=== PATIENT | male | born 1980 | race American Indian/Alaskan Native ===

== ENCOUNTER 2019-07-29 11:15 | Emergency (ER) | payer BC ==
[2019-07-29 11:23] VITALS: BP 158/105
--- NOTE | 2019-07-29 11:29 | Emergency Department Report ---
Blank Doc - Documentation Documentation: 39-year-old male that presents with URI symptoms. This initial assessment/diagnostic orders/clinical plan/treatment(s) is/are subject to change based on patient's health status, clinical progression and re- assessment by fellow clinical providers in the ED. Further treatment and workup at subsequent clinical providers discretion. Patient/guardians urged not to elope from the ED as their condition may be serious if not clinically assessed and managed. Initial orders include: 1- Patient sent to [facility] for further evaluation and treatment 2- cxr
--- NOTE | 2019-07-29 12:14 | XRay Report ---
CHEST 2 VIEWS INDICATION / CLINICAL INFORMATION: Cough. COMPARISON: None currently available. FINDINGS: SUPPORT DEVICES: None. HEART / MEDIASTINUM: The heart size and pulmonary vasculature are normal. LUNGS / PLEURA: No significant pulmonary or pleural abnormality. No pneumothorax. ADDITIONAL FINDINGS: There are bilateral cervical ribs. IMPRESSION: No acute findings. Signer Name: Jonny Berman MD Signed: 07/29/2019 12:10 PM Workstation Name: [id number]
[2019-07-29] MEDS ORDERED: IPRATROPIUM/ALBUTEROL SULFATE 3 ML AMPUL.NEB IH ONE (12:56)
[2019-07-29] MEDS ORDERED: DEXAMETHASONE 4 MG TAB PO ONE (12:56)
--- NOTE | 2019-07-29 13:33 | Emergency Department Report ---
HPI - General Chief Complaint: Upper Respiratory Infection Time Seen by Provider: 07/29/19 11:28 - HPI HPI: 39-year-old [place] male presents to the emergency department with a three-day history of a productive sounding cough and chest congestion. He says that there is possibly been 1 day of a subjective fever. He has had some Mucinex and Advil for his symptoms without any relief. He denies any headache, shortness of breath, nausea, vomiting, diarrhea. No past medical history. He is a tobacco smoker. No primary care physician. No recent travel or sick contacts at home. ED Past Medical Hx - Past Medical History Previous Medical History?: No - Surgical History Past Surgical History?: No - Social History Smoking Status: Never Smoker Substance Use Type: None - Medications Home Medications: Home Medications Medication Instructions Recorded Confirmed Last Taken Type ALBUTEROL Inhaler (OR & NICU) 2 puff IH QID PRN #1 inh 07/29/19 Unknown Rx [ProAir HFA Inhaler] Benzonatate [Tessalon Perles] 100 mg PO Q8HR PRN #20 capsule 07/29/19 Unknown Rx ED Review of Systems ROS: Stated complaint: CHEST CONGESTION Other details as noted in HPI Comment: All other systems reviewed and negative Constitutional: fever (subjective). denies: weakness Eyes: denies: eye pain, vision change ENT: denies: ear pain, throat pain Respiratory: cough, wheezing Cardiovascular: denies: palpitations, edema Gastrointestinal: denies: abdominal pain, vomiting, diarrhea Musculoskeletal: denies: back pain, joint swelling Skin: denies: rash, lesions Neurological: denies: headache, weakness Physical Exam - Physical Exam Vital Signs: Vital Signs 07/29/19 07/29/19 11:20 13:21 Temperature 98.4 F Pulse Rate 63 Pulse Rate [ 66 Anterior Bilateral Throughout] Respiratory 20 Rate Respiratory 20 Rate [Anterior Bilateral Throughout] Blood Pressure 158/105 O2 Sat by Pulse 95 Oximetry Physical Exam: GENERAL: The patient is well-developed well-nourished. HENT: Normocephalic. Atraumatic. Patient has moist mucous membranes. Oropharynx is clear without tonsillar hypertrophy, erythema or exudates. EYES: Extraocular motions are intact. Pupils equal reactive to light bilatera lly. NECK: Supple. Trachea is midline. CHEST/LUNGS: Expiratory wheezing. A productive sounding cough heard during examination. No tachypnea or accessory muscle use. There is no respiratory distress noted. HEART/CARDIOVASCULAR: Regular. There is no tachycardia. There is no murmur. ABDOMEN: Abdomen is soft, nontender. Patient has normal bowel sounds. There is no abdominal distention. SKIN: Skin is warm and dry. NEURO: The patient is awake, alert, and oriented. The patient is cooperative. The patient has no focal neurologic deficits. The patient has normal speech. MUSCULOSKELETAL: There is no tenderness or deformity. There is no evidence of acute injury. ED Course Vital Signs 07/29/19 07/29/19 11:20 13:21 Temperature 98.4 F Pulse Rate 63 Pulse Rate [ 66 Anterior Bilateral Throughout] Respiratory 20 Rate Respiratory 20 Rate [Anterior Bilateral Throughout] Blood Pressure 158/105 O2 Sat by Pulse 95 Oximetry ED Medical Decision Making - Radiology Data Radiology results: image reviewed interpreted by me: Chest x-ray does not show any acute process. There are no pleural effusions, obvious pneumonia and there is no pneumothorax. - Medical Decision Making Patient presents with a three-day history of mixed dry and productive cough and one-day history of subjective fever. On examination he has some mild expiratory wheezing. He does have a productive sounding cough but no signs of any respiratory or acute distress. Vital signs stable including being afebrile. Patient was given a dose of Decadron and a breathing treatment and upon reevaluation he is feeling improved. Chest x-ray does not show any pneumonia, pleural effusions or any other acute process. The patient appears to have a viral upper respiratory infection that is also affected by his tobacco smoking. We discussed smoking cessation. Patient will be placed on an albuterol inhaler and given Tessalon Perles for cough. He has been instructed to follow up with PCP and return to the ER with any worsening of his symptoms or any acute distress. - Differential Diagnosis pneumonia, influenza, nonspecific viral URI, bronchitis Critical Care Time: No Critical care attestation.: If time is entered above; I have spent that time in minutes in the direct care of this critically ill patient, excluding procedure time. ED Disposition Clinical Impression: Upper respiratory infection Qualifiers: URI type: unspecified viral URI Qualified Code(s): J06.9 - Acute upper respiratory infection, unspecified Disposition: - TO HOME OR SELFCARE Is pt being admited?: No Condition: Stable Instructions: How to Stop Smoking (ED), Upper Respiratory Infection (ED) Additional Instructions: Please follow up with a primary care physician in the next few days. Return to the emergency Department with any worsening of your symptoms or any acute distress. Prescriptions: ALBUTEROL Inhaler (OR & NICU) [ProAir HFA Inhaler] 2 puff IH QID PRN #1 inh PRN Reason: Shortness Of Breath Benzonatate [Tessalon Perles] 100 mg PO Q8HR PRN #20 capsule PRN Reason: Cough Referrals: XIANG HARPER MD [Staff Physician] - 2-3 Days [facility] [place] [Outside] - 2-3 Days Forms: Work/School Release Form(ED) Time of Disposition: 13:33
== END 2019-07-29 13:42 | disposition home or self-care (01) ==
LOC: ED 11:15
DX: J06.9 Acute upper respiratory infection, unspecified (principal); Z79.899 Other long term (current) drug therapy
CPT/HCPCS: 71046; 94640; 99283; J8540; 94644